=== PATIENT | female | born 1960 | race Caucasian/White ===

== ENCOUNTER → 2017-11-06 | Outpatient (CLI) | payer OTHER ==
[~2017-11-06] MED LIST: ALLEGRA ALLERG180 MG PO; CALCIUM 600 +1 EA10 PO; CELECOXIB200 MG PO; ENDOCET 5-3251 EACH PO; FLEXERIL5 MG PO; HYDROCHLOROTHIA25 MG PO; IRON325 M1 PO; LIPITOR10 MG PO; LOTREL 5/201 CAPSULE PO; LOVENOX40 MG/0.4 SC; MOTRIN600 MG PO; NORCO 5/3251 TABLET PO; SENNA PLUS TAB1 EACH PO; VIVELLE-DOT,0.025 MG TD; VIVELLE-DOT0.05 MG TD; ZOLOFT50 MG PO
== END | disposition home or self-care (01) ==
LOC: NUC 09:22
DX: M19.012 Primary osteoarthritis, left shoulder (principal); M19.011 Primary osteoarthritis, right shoulder; M18.0 Bilateral primary osteoarthritis of first carpometacarpal joints; M19.071 Primary osteoarthritis, right ankle and foot; M19.072 Primary osteoarthritis, left ankle and foot; R93.7 Abnormal findings on diagnostic imaging of other parts of musculoskeletal system; M17.11 Unilateral primary osteoarthritis, right knee; Z96.651 Presence of right artificial knee joint; Z98.890 Other specified postprocedural states
CPT/HCPCS: 78315; A9503